=== PATIENT | female | born 1985 | race Caucasian/White ===

== ENCOUNTER 2017-09-29 15:23 | Observation (INO) ==
[2017-09-29] MEDS ORDERED: Ondansetron 4 MG/2 ML VIAL IVP ONE (16:12)
[2017-09-29] MEDS ORDERED: *HR* FentaNYL (PF) 100 MCG/2 ML VIAL IVP ONE ×2 (16:14→19:29)
--- NOTE | 2017-09-29 16:17 | Emergency Department Note ---
Disposition Clinical Impression: Cholecystitis Disposition: Admitted As Inpatient Condition: Fair Time of Disposition: 19:25 General Adult HPI - General Chief complaint: ED Abdominal Pain Stated complaint: Abdominal Pain/Seizure-like activity Time Seen by Provider: 09/29/17 15:55 Source: patient Mode of arrival: ambulatory Limitations: no limitations Nursing Notes Reviewed: Yes Vital Signs Reviewed: Yes - History of Present Illness HPI Narrative: Patient is a 32-year-old female with a past medical history of IV DU, hepatitis C, and asthma presenting to the emergency department for the complaint of epigastric and right upper quadrant abdominal pain. The patient states that this pain started initially 7 days ago and was intermittent however over the past 3 days has become constant and worsening. She states the pain as a cramping/stabbing pain that is a 10/10. She states the pain does not radiate into her back. This pain is associated with bilious vomiting as well as nonbloody diarrhea. She states she has never had pain like this before. She states that she has not used IV heroin in over 2 years. She states that she did use "ice" 3 days ago because the pain was so bad. She denies any fevers, chills, chest pain, shortness of breath, dysuria, vaginal discharge. She states she is currently on her menstrual period. Pain Scale: 10 - Related Data Home Medications Medication Instructions Recorded Confirmed No Known Home Drugs 09/27/17 09/29/17 Allergies Allergy/AdvReac Type Severity Reaction Status Date / Time naproxen AdvReac Seizure Verified 09/29/17 04:33 Penicillins [PCN] AdvReac Hives Verified 09/29/17 04:33 All systems ED: reviewed and negative except as stated. Review of Systems: As Per HPI Constitutional: Denies: fever, chills ENT ED: Denies: congestion Respiratory: Denies: cough, dyspnea, wheezes Gastrointestinal: Reports: abdominal pain, nausea, vomiting, diarrhea. Denies: hematemesis, melena, hematochezia Genitourinary: Denies: urgency, dysuria Musculoskeletal: Denies: back pain Integumentary: Denies: rash Past Medical History - Past Medical History Attestation: Yes The following information was validated with the patient. Medical history: Reports: asthma, seizures Psychiatric history: Reports: anxiety - Social History Smoking Status: Current every day smoker Smokeless Tobacco Status: No Alcohol use: Reports: occasionally Drug use: Reports: marijuana, methamphetamine, IV Drug Use Physical Exam CONSTITUTIONAL: Alert and oriented X3. Patient does appear to be in moderate distress secondary to her abdominal pain. She is tearful. HEAD: Normocephalic; atraumatic. Mucous membranes are dry. EYES: PERRL, no scleral icterus. NOSE: The nose is normal in appearance without rhinorrhea RESP: Normal chest excursion with respiration; breath sounds clear and equal bilaterally; no wheezes, rhonchi, or rales CARD: Regular rhythm, without murmurs, rub or gallop ABD: Patient has epigastric and right upper quadrant abdominal tenderness that is moderate with palpation. No peritoneal signs. SKIN: Normal for age and race; warm and dry; no apparent lesions - General General appearance: alert, anxious Course Course Narrative: Plan at this time is order basic labs to evaluate for an abdominal etiology of the patient's pain. She did have a recent ultrasound done of her gallbladder which mainly showed stones. We will do a CT scan of the abdomen and pelvis and treat the patient's pain and nausea at this time. - Reevaluation(s) Reevaluation #1: Due to the findings of the patient's CT scan and description sounds like possibly be a cholecystitis a right upper quadrant ultrasound which was positive for acute cholecystitis. The patient was started on IV antibiotics and admitted to the hospitalist with consult to Dr. Nelson. Dr. Nelson requested patient be started on 125ml/hr LR D5. Time: 20:36 Vital Signs Temperature 97.5 F L 09/29/17 15:25 Pulse Rate 56 09/29/17 15:25 Respiratory Rate 20 09/29/17 15:25 Blood Pressure 137/81 09/29/17 15:25 O2 Sat by Pulse Oximetry 99 09/29/17 15:25 Temperature 97.5 F L 09/29/17 15:25 Pulse Rate 59 09/29/17 17:58 Respiratory Rate 16 09/29/17 17:58 Blood Pressure 128/77 09/29/17 17:58 O2 Sat by Pulse Oximetry 99 09/29/17 17:58 Oxygen Delivery Oxygen Delivery Room Air Medical Decision Making - Medical Records Medical records reviewed: Yes I reviewed the patient's medical records. - Lab Data Lab results reviewed: Yes I reviewed the patient's lab results. Result diagrams: 09/29/17 16:13 09/29/17 17:48 Lab Results 09/29/17 09/29/17 09/29/17 Range/Units 16:13 17:48 19:33 WBC 14.0 H (4.3-11.1) K/mcL RBC 3.95 (3.82-4.97) M/mcL Hgb 12.0 D (11.5-15.4) g/dL Hct 35.7 (35.3-44.9) % MCV 90.4 (83.0-100.0) fL MCH 30.4 (28.0-33.3) pg MCHC 33.6 (31.6-35.5) g/dL RDW 13.2 (11.5-14.5) % Plt Count 259 (140-400) K/mcL MPV 9.8 (9.4-12.4) fL Immature Gran % 0.4 (0-4) % Seg Neutrophils % 69.0 % Lymphocytes % 23.4 % Monocytes % 6.2 % Eosinophils % 0.7 % Basophils % 0.3 % Neutrophils # 9.6 H (1.6-8.9) K/mcL Lymphocytes # 3.3 (0.6-4.6) K/mcL Monocytes # 0.9 (0.0-1.3) K/mcL Eosinophils # 0.1 (0.0-0.6) K/mcL Basophils # 0.0 (0.0-0.2) K/mcL Immature Plt Fraction 3.2 (1.1-6.1) % Sodium 136 (136-145) mEq/L Potassium 4.1 (3.5-5.1) mEq/L Chloride 106 (98-107) mEq/L Carbon Dioxide 23 (23-29) mEq/L BUN 10 (6-20) mg/dL Creatinine 0.57 L (0.60-1.20) mg/dL Est GFR ( Amer) > 60 (> 60) Est GFR (Non-Af Amer) > 60 (> 60) BUN/Creatinine Ratio 18 (6-26) Glucose 104 (70-105) mg/dL Calculated Osmolality 281 (280-300) Calcium 9.4 (8.6-10.3) mg/dL Total Bilirubin 0.4 (0.3-1.0) mg/dL Direct Bilirubin 0.1 (0.0-0.2) mg/dL Indirect Bilirubin 0.3 (0.0-1.2) mg/dL AST 27 (13-39) Units/L ALT 40 (7-52) Units/L Alkaline Phosphatase 59 (34-104) Units/L Serum Total Protein 6.9 (6.4-8.9) g/dL Albumin 4.2 (3.5-5.7) g/dL Globulin 2.7 (2.4-3.5) g/dL Albumin/Globulin Ratio 1.6 (1.1-2.2) Lipase 7 L (11-82) Units/L Urine Color Yellow (Yellow) Urine Clarity Clear (Clear) Urine pH 8.0 (5.0-8.0) pH Units Ur Specific [place] > 1.030 H (1.010-1.025) Urine Protein Trace (Neg-Trace) mg/dL Urine Glucose (UA) Normal (Normal) mg/dL Urine Ketones Negative (Negative) mg/dL Urine Blood Negative (Negative) Urine Nitrite Negative (Negative) Urine Bilirubin Negative (Negative) Urine Urobilinogen Normal (Normal) mg/dL Ur Leukocyte Esterase Trace H (Negative) Urine Microscopic RBC 3-5 H (0-3) per hpf Urine Microscopic WBC 50-100 H (0-3) per hpf Ur Squamous Epith Cells Many H (None-Few) per lpf Urine Bacteria Few (None-Few) per hpf Hyaline Casts Few (None-Few) per lpf Ur Culture Indicated? NO. (NO) Urine Test (Negative) 09/29/17 Range/Units 19:33 WBC (4.3-11.1) K/mcL RBC (3.82-4.97) M/mcL Hgb (11.5-15.4) g/dL Hct (35.3-44.9) % MCV (83.0-100.0) fL MCH (28.0-33.3) pg MCHC (31.6-35.5) g/dL RDW (11.5-14.5) % Plt Count (140-400) K/mcL MPV (9.4-12.4) fL Immature Gran % (0-4) % Seg Neutrophils % % Lymphocytes % % Monocytes % % Eosinophils % % Basophils % % Neutrophils # (1.6-8.9) K/mcL Lymphocytes # (0.6-4.6) K/mcL Monocytes # (0.0-1.3) K/mcL Eosinophils # (0.0-0.6) K/mcL Basophils # (0.0-0.2) K/mcL Immature Plt Fraction (1.1-6.1) % Sodium (136-145) mEq/L Potassium (3.5-5.1) mEq/L Chloride (98-107) mEq/L Carbon Dioxide (23-29) mEq/L BUN (6-20) mg/dL Creatinine (0.60-1.20) mg/dL Est GFR ( Amer) (> 60) Est GFR (Non-Af Amer) (> 60) BUN/Creatinine Ratio (6-26) Glucose (70-105) mg/dL Calculated Osmolality (280-300) Calcium (8.6-10.3) mg/dL Total Bilirubin (0.3-1.0) mg/dL Direct Bilirubin (0.0-0.2) mg/dL Indirect Bilirubin (0.0-1.2) mg/dL AST (13-39) Units/L ALT (7-52) Units/L Alkaline Phosphatase (34-104) Units/L Serum Total Protein (6.4-8.9) g/dL Albumin (3.5-5.7) g/dL Globulin (2.4-3.5) g/dL Albumin/Globulin Ratio (1.1-2.2) Lipase (11-82) Units/L Urine Color (Yellow) Urine Clarity (Clear) Urine pH (5.0-8.0) pH Units Ur Specific [place] (1.010-1.025) Urine Protein (Neg-Trace) mg/dL Urine Glucose (UA) (Normal) mg/dL Urine Ketones (Negative) mg/dL Urine Blood (Negative) Urine Nitrite (Negative) Urine Bilirubin (Negative) Urine Urobilinogen (Normal) mg/dL Ur Leukocyte Esterase (Negative) Urine Microscopic RBC (0-3) per hpf Urine Microscopic WBC (0-3) per hpf Ur Squamous Epith Cells (None-Few) per lpf Urine Bacteria (None-Few) per hpf Hyaline Casts (None-Few) per lpf Ur Culture Indicated? (NO) Urine Test Negative (Negative) - Radiology Data Radiology results reviewed: Yes I reviewed the patient's radiology results. Abdomen/Pelvis CT 09/29/17 16:20 IMPRESSION: Distended gallbladder which shows wall thickening. Gallbladder wall thickening is nonspecific and can be seen with acute and/or chronic inflammation, fluid overload/ edematous states, or right upper quadrant inflammatory or infectious processes to include hepatitis. Periportal edema, also nonspecific and can be also be seen with aggressive hydration, congestive heart failure, or inflammatory processes to include cholangitis, and hepatitis. D/ / Kelly Rodriguez Cha, MD / Kelly Rodriguez Cha, MD Interpreting Provider: Kelly Rodriguez Cha, MD Gallbladder Ultrasound 09/29/17 17:31 IMPRESSION: Findings compatible with acute cholecystitis. There is gallbladder distention, wall thickening, and cholelithiasis with positive sonographic Joseph's sign. Periportal edema, a nonspecific finding. This can be seen with aggressive hydration and hepatitis. D/ / Edison Bridges MD / Edison Bridges MD Interpreting Provider: Edison Bridgse MD Attestation Statement - Attestation Attestation: I examined this patient and my medical decision-making was reviewed with the Resident Physician, Dr. Carrizales. I agree with the documented findings, disposition and treatment plan as described except to the extent set forth below. She is a 32-year-old white female with a history of IV drug abuse remotely and hepatitis C who presents the emergency room with a seven-day history of gradually worsening right upper quadrant abdominal pain associated with nausea and vomiting. Patient states the pain is intensified over the past 72 hours and reports being evaluated at an outlying facility and having an ultrasound in which she was told she had stones. Patient has continued with symptoms despite prior evaluation and feels that they are worsening in severity. I agree with patient's physical exam findings as documented. Signs are stable. Patient appears uncomfortable and requesting pain medicine on arrival. Patient was provided pain in nausea medication IV labs were drawn and sent and due to prior ultrasound reported by history as being normal we started with a CAT scan to further evaluate her abdominal pain. Patient's labs overall appear unremarkable. Patient's CT was suggestive of possible acute cholecystitis. We went ahead and repeated the right upper quadrant ultrasound and it confirmed the presence of acute cholecystitis. Patient has remained hemodynamically stable with normal mental status throughout her ED course. Patient was started on IV antibiotics and Dr. Nelson from surgery was contacted who agreed to consult and requested that patient be admitted to the hospitalist service. Case was also discussed with hospitalist.
[2017-09-29 18:01] LABS: Basophils % 0.3 %; Eosinophils # 0.1 K/mcL (0.0-0.6); Eosinophils % 0.7 %; Hematocrit 35.7 % (35.3-44.9); Immature Granulocytes % 0.4 % (0-4); Immature Platelets 3.2 % (1.1-6.1); Lymphocytes # 3.3 K/mcL (0.6-4.6); Lymphocytes % 23.4 %; Mean Corpuscular HGB Conc 33.6 g/dL (31.6-35.5); Mean Corpuscular Hemoglobin 30.4 pg (28.0-33.3); Mean Corpuscular Volume 90.4 fL (83.0-100.0); Mean Platelet Volume 9.8 fL (9.4-12.4); Monocytes # 0.9 K/mcL (0.0-1.3); Monocytes % 6.2 %; Neutrophils # 9.6 K/mcL (1.6-8.9); Platelet Count 259 K/mcL (140-400); Red Blood Count 3.95 M/mcL (3.82-4.97); Red Cell Distribution Width 13.2 % (11.5-14.5)
[2017-09-29 18:17] LABS: Alanine Aminotransferase 40 Units/L (7-52); Albumin 4.2 g/dL (3.5-5.7); Albumin/Globulin Ratio 1.6 (1.1-2.2); Alkaline Phosphatase 59 Units/L (34-104); Aspartate Amino Transferase 27 Units/L (13-39); BUN/Creatinine Ratio 18 (6-26); Bilirubin,Direct 0.1 mg/dL (0.0-0.2); Bilirubin,Indirect 0.3 mg/dL (0.0-1.2); Bilirubin,Total 0.4 mg/dL (0.3-1.0); Blood Urea Nitrogen 10 mg/dL (6-20); Calcium 9.4 mg/dL (8.6-10.3); Carbon Dioxide 23 mEq/L (23-29); Chloride 106 mEq/L (98-107); Globulin 2.7 g/dL (2.4-3.5); Glucose 104 mg/dL (70-105); Lipase 7 Units/L (11-82); Osmolality,Calculated 281 (280-300); Potassium 4.1 mEq/L (3.5-5.1); Sodium 136 mEq/L (136-145); Total Protein 6.9 g/dL (6.4-8.9); eGFR For African Americans > 60 (> 60); eGFR For Non-African Americans > 60 (> 60)
[2017-09-29] MEDS ORDERED: MetroNIDAZOLE 500 MG/100 ML 500 MG/100 ML BAG IVPB ONE (19:20)
[2017-09-29] MEDS ORDERED: D5% in Lactated Ringers 1,000 ML IVC SCH (19:30)
[2017-09-29 19:49] LABS: Bilirubin,Urine Negative (Negative); Blood,Urine Negative (Negative); Clarity,Urine Clear (Clear); Color,Urine Yellow (Yellow); Glucose,Urine (UA) Normal (Normal); Ketones,Urine Negative (Negative); Leukocyte Esterase,Urine Trace (Negative); Nitrite,Urine Negative (Negative); Protein,Urine Trace mg/dL (Neg-Trace); Specific Gravity,Urine > 1.030 (1.010-1.025); Urobilinogen,Urine Normal (Normal)
[2017-09-29 19:52] LABS: Bacteria,Urine Few per hpf (None-Few); Hyaline Casts,Urine Few per lpf (None-Few); Squamous Epithelial Cell,Urine Many per lpf (None-Few); WBC,Urine 50-100 per hpf (0-3)
[2017-09-29] MEDS ORDERED: Acetaminophen 325 MG TABLET PO PRN (20:34)
[2017-09-29] MEDS ORDERED: Naloxone 0.4 MG/ML INJ IVP PRN (20:34)
[2017-09-29] MEDS ORDERED: *HR* Promethazine 25 MG/ML VIAL IVP PRN (20:34)
[2017-09-29] MEDS ORDERED: Ondansetron 4 MG/2 ML VIAL IVP PRN (20:34)
--- NOTE | 2017-09-29 21:37 | Internal Med History&Physical ---
Date of Encounter: 09/29/17 Time of Encounter: 20:30 Internal Medicine - H&P: HPI Chief complaint: Abdominal pain Admitted From: Emergency Dept Plans for Post Hospital Care: Home History of present illness: Ms. Marie is a 32 year old female with known PMH of IVDA, hepatitis C, and asthma pt presented to ER with one week h/o RUQ abd pain. She does c/o nausea and denied any vomiting. Her abdominal pain is 10/10 in severity, sharp pain, non radiating and associated with nausea. She had further work up done in the ER , her U/S abd and CT of Abd showed acute cholecystitis. Pt did mention she does take ICE drug 3 days ago and smoke tobacco and Marijuana on regular basis. Past Med Surg Social Fam HX - Past Medical History Medical history: asthma, seizures Psychiatric history: anxiety - Social History Smoking Status: Current every day smoker Smokeless Tobacco Status: No Alcohol use: occasionally Drug use: marijuana, methamphetamine, IV Drug Use - Additional Family History Additional family history: Family hsitory reviewed and non contribuitory to current problem. Internal Medicine - H&P: Meds No Known Home Drugs 09/27/17 [History] 3 Allergy/AdvReac Type Severity Reaction Status Date / Time naproxen AdvReac Seizure Verified 09/29/17 04:33 Penicillins [PCN] AdvReac Hives Verified 09/29/17 04:33 All Systems PM: A 10-system review of systems was performed and is negative for pertinent findings except as documented above in the HPI. Review of systems: All the systems are reviewed everything is benign except the systems and symptoms I mentioned in the history of present illness - Constitutional Vitals: Temp Pulse Resp BP Pulse Ox 97.5 F L 59 16 128/77 99 09/29/17 15:25 09/29/17 17:58 09/29/17 17:58 09/29/17 17:58 09/29/17 17:58 General appearance: Present: A&O X 3, answers questions appropriately - Head Head exam: Present: atraumatic, normal inspection - Respiratory Respiratory exam: Present: decreased breath sounds. Absent: rales, respiratory distress, rhonchi, wheezes - Cardiovascular Cardiovascular exam: Present: RRR, +S1, +S2. Absent: tachycardia - GI/Abdominal GI/Abdominal exam: Present: normal bowel sounds, soft, tenderness (RUQ). Absent : rebound, rigid - Extremities Exam Extremities exam: Absent: calf tenderness, pedal edema, tenderness - Back Exam Back exam: Absent: CVA tenderness (L), CVA tenderness (R) - Neurological Exam Neurological exam: Present: alert, oriented X3 - Psychiatric Psychiatric exam: Present: normal affect, normal mood - Skin Skin exam: Absent: rash Internal Med - H&P Results - Labs CBC & Chem 7: 09/29/17 16:13 09/29/17 17:48 - Assessment and plan (1) Cholecystitis Current Visit: Yes Status: Acute Assessment and plan: Place the pt into Med Surg for observation Reviewed pt's CT of Abd and U/S of Abd - showed distended GB - consistent with acute cholecystitis Surgery consulted NPO IV hydration Possible surgery in AM Empirical abx with Cipro and Flagyl PO and IV analgesics PRN (2) Substance abuse Current Visit: Yes Status: Acute Assessment and plan: counseled to quit doing drugs will check UDS cont close monitoring for any withdraw symptoms will give Ativan PRN for withdraw symptoms (3) UTI (urinary tract infection) Current Visit: Yes Status: Acute Assessment and plan: reviewed UA- sightly abnormal on Abx Cipro Qualifiers: Hematuria presence: without hematuria Qualified Code(s): N39.0 - Urinary tract infection, site not specified (4) Tobacco dependence Current Visit: Yes Status: Acute Assessment and plan: Counseled to quit smoking placed on nicotine patch - Time Spent With Patient Total time spent is greater than 50% in coordination of care (as documented) at patient's floor/unit and/or counseling patient:
[2017-09-29] MEDS: 0.9 % Sodium Chloride 1,000 ML IVC SCH (22:35)
[2017-09-29] MEDS: *HR* FentaNYL (PF) 100 MCG/2 ML VIAL IVP PRN (22:49)
[2017-09-30] MEDS: *HR* HYDROcodone/Acet 5/325 mg TABLET PO PRN ×4 (01:11→22:59)
[2017-09-30] MEDS: *HR* FentaNYL (PF) 100 MCG/2 ML VIAL IVP PRN ×5 (02:04→22:59)
[2017-09-30] MEDS: MetroNIDAZOLE 500 MG/100 ML 500 MG/100 ML BAG IVPB SCH ×3 (05:08→15:48)
[2017-09-30 05:42] LABS: Basophils % 0.3 %; Eosinophils # 0.2 K/mcL (0.0-0.6); Eosinophils % 1.5 %; Hematocrit 37.6 % (35.3-44.9); Hemoglobin 12.7 g/dL (11.5-15.4); Immature Granulocytes % 0.4 % (0-4); Lymphocytes # 4.9 K/mcL (0.6-4.6); Lymphocytes % 34.5 %; Mean Corpuscular HGB Conc 33.8 g/dL (31.6-35.5); Mean Corpuscular Volume 91.7 fL (83.0-100.0); Mean Platelet Volume 9.9 fL (9.4-12.4); Monocytes # 1.1 K/mcL (0.0-1.3); Monocytes % 7.8 %; Neutrophils # 7.9 K/mcL (1.6-8.9); Platelet Count 280 K/mcL (140-400); Segmented Neutrophils % 55.5 %
[2017-09-30 05:56] LABS: Alanine Aminotransferase 36 Units/L (7-52); Albumin 3.9 g/dL (3.5-5.7); Albumin/Globulin Ratio 1.4 (1.1-2.2); Alkaline Phosphatase 56 Units/L (34-104); Aspartate Amino Transferase 24 Units/L (13-39); BUN/Creatinine Ratio 14 (6-26); Bilirubin,Total 0.5 mg/dL (0.3-1.0); Blood Urea Nitrogen 9 mg/dL (6-20); Calcium 9.3 mg/dL (8.6-10.3); Carbon Dioxide 24 mEq/L (23-29); Chloride 106 mEq/L (98-107); Globulin 2.8 g/dL (2.4-3.5); Glucose 95 mg/dL (70-105); Osmolality,Calculated 280 (280-300); Potassium 3.9 mEq/L (3.5-5.1); Sodium 136 mEq/L (136-145); Total Protein 6.7 g/dL (6.4-8.9); eGFR For African Americans > 60 (> 60); eGFR For Non-African Americans > 60 (> 60)
[2017-09-30] MEDS: Nicotine 21 MG PATCH.TD24 TD SCH (08:24)
--- NOTE | 2017-09-30 10:04 | General Surgery Consult Note ---
<Dang Toscano - Last Filed: 09/30/17 14:48> Date of Encounter: 09/30/17 Time of Encounter: 07:30 Assessment and Plan (1) Cholecystitis Current Visit: Yes Status: Acute Patient is afebrile. Labs showed leukocytosis with a white blood count of 14.3 , normal LFTs, normal bilirubin, and negative UA. CT of the abdomen shows Distended gallbladder which shows wall thickening. Gallbladder wall thickening is nonspecific and can be seen with acute and/or chronic inflammation, fluid overload/ edematous states, or right upper quadrant inflammatory or infectious processes to include hepatitis. Gallbladder ultrasound shows findings compatible with acute cholecystitis. There is gallbladder distention, wall thickening, and cholelithiasis with positive sonographic Joseph's sign. No significant pericholecystic fluid. Plan: continue IV fluids continue IV antibiotics pain control and supportive care NPO diet Surgical intervention tomorrow. Plan for laprascopic cholecystectomy tomorrow. (2) History of hepatitis C Current Visit: Yes Status: Acute History of hepatitis C most likely secondary to history of IV drug use. Management per primary team. History of Present Illness Consult date: 09/30/17 Reason for consult: other (Acute cholecystitis) History of present illness: Ms. Marie is a 32 year old female with a past medical history of IV drug use, hepatitis C, and asthma who presented to the ER complaining of right upper quadrant abdominal pain for the past week. The patient admits associated nausea but denies any vomiting. She describes the right upper quadrant abdominal pain as a constant, sharp, and radiates to her back. She admits he pain has worsened over the last 3 days. She admits the pain was unbearable and had taken "ICE" for the pain. The patient clarified that ice was meth. She stated that she has not use heroin in the past 2 years. Evaluation the emergency department shows a leukocytosis with a white blood count of 14, normal LFTs, normal bilirubin, and negative UA. CT of the abdomen shows Distended gallbladder which shows wall thickening. Gallbladder wall thickening is nonspecific and can be seen with acute and/or chronic inflammation, fluid overload/ edematous states, or right upper quadrant inflammatory or infectious processes to include hepatitis. Gallbladder ultrasound shows findings compatible with acute cholecystitis. There is gallbladder distention, wall thickening, and cholelithiasis with positive sonographic Joseph's sign. No significant pericholecystic fluid. Surgery was consulted for possible acute cholecystitis. Patient is afebrile and appears in no acute distress at this time. Patient admits nausea. Patient stated last bowel movement was yesterday and it was normal. Patient denies any surgical history. The patient denies any fever, headaches, vision changes, near syncope, chest pain, shortness of breath, difficulty breathing, diarrhea, blood in stools, urinary symptoms, and any weaknesses. Past Med Surg Social Fam HX - Past Medical History Medical history: asthma, seizures Psychiatric history: anxiety - Social History Smoking Status: Current every day smoker Smokeless Tobacco Status: No Alcohol use: occasionally Drug use: marijuana, methamphetamine, IV Drug Use Medications and Allergies No Known Home Drugs 09/27/17 [History] 3 Allergy/AdvReac Type Severity Reaction Status Date / Time Cyclobenzaprine AdvReac Seizure Verified 10/01/17 07:02 [From Flexeril] naproxen AdvReac Seizure Verified 09/29/17 04:33 Penicillins [PCN] AdvReac Hives Verified 09/29/17 04:33 Review of Systems All systems PM: The remainder of the systems were reviewed and are negative - Constitutional as per HPI General Surgery Exam Initial Vital Signs Temp Pulse Resp BP Pulse Ox 97.5 F L 56 20 137/81 99 09/29/17 15:25 09/29/17 15:25 09/29/17 15:25 09/29/17 15:25 09/29/17 15:25 - General physical appearance well developed, well nourished, no distress, moderate pain. negative: obese, jaundice - Eyes PERRL, normal ocular movement - ENT normal mucosa - Neck trachea midline - Respiratory normal expansion, normal respiratory effort - Cardiovascular Cardiovascular exam: Present: RRR, no murmurs/rubs/gallops - Abdomen Abdomen general surgery: Present: bowel sounds present, soft, tender ( Tenderness to palpation in the right upper quadrant and epigastric). Absent: distended, guarding, rebound, rigid Abdominal Tenderness: Present: epigastic, RUQ - Integumentary Integumentary general surgery: Present: warm and dry, no abnormal pigmentation - Neurologic Present: CN 2-12 grossly intact - Psychiatric Psychiatric general surgery: Present: A&Ox3, appropriate, speech is normal Exam Initial Vital Signs Temp Pulse Resp BP Pulse Ox 97.5 F L 56 20 137/81 99 09/29/17 15:25 09/29/17 15:25 09/29/17 15:25 09/29/17 15:25 09/29/17 15:25 Results - Labs 09/30/17 05:11 09/30/17 05:11 Abnormal lab results WBC 14.3 K/mcL (4.3-11.1) H 09/30/17 05:11 Lymphocytes # 4.9 K/mcL (0.6-4.6) H 09/30/17 05:11 Lipase 7 Units/L (11-82) L 09/29/17 17:48 Ur Specific [place] > 1.030 (1.010-1.025) H 09/29/17 19:33 Ur Leukocyte Esterase Trace (Negative) H 09/29/17 19:33 Urine Microscopic RBC 3-5 per hpf (0-3) H 09/29/17 19:33 Urine Microscopic WBC 50-100 per hpf (0-3) H 09/29/17 19:33 Ur Squamous Epith Cells Many per lpf (None-Few) H 09/29/17 19:33 Diabetes panel 09/30/17 Range/Units 05:11 Sodium 136 (136-145) mEq/L Potassium 3.9 (3.5-5.1) mEq/L Chloride 106 (98-107) mEq/L Carbon Dioxide 24 (23-29) mEq/L BUN 9 (6-20) mg/dL Creatinine 0.63 (0.60-1.20) mg/dL Glucose 95 (70-105) mg/dL Calcium 9.3 (8.6-10.3) mg/dL AST 24 (13-39) Units/L ALT 36 (7-52) Units/L Alkaline Phosphatase 56 (34-104) Units/L Albumin 3.9 (3.5-5.7) g/dL Calcium panel 09/30/17 Range/Units 05:11 Calcium 9.3 (8.6-10.3) mg/dL Albumin 3.9 (3.5-5.7) g/dL Pituitary panel 09/30/17 Range/Units 05:11 Sodium 136 (136-145) mEq/L Potassium 3.9 (3.5-5.1) mEq/L Chloride 106 (98-107) mEq/L Carbon Dioxide 24 (23-29) mEq/L BUN 9 (6-20) mg/dL Creatinine 0.63 (0.60-1.20) mg/dL Glucose 95 (70-105) mg/dL Calcium 9.3 (8.6-10.3) mg/dL Adrenal panel 09/30/17 Range/Units 05:11 Sodium 136 (136-145) mEq/L Potassium 3.9 (3.5-5.1) mEq/L Chloride 106 (98-107) mEq/L Carbon Dioxide 24 (23-29) mEq/L BUN 9 (6-20) mg/dL Creatinine 0.63 (0.60-1.20) mg/dL Glucose 95 (70-105) mg/dL Calcium 9.3 (8.6-10.3) mg/dL Total Bilirubin 0.5 (0.3-1.0) mg/dL AST 24 (13-39) Units/L ALT 36 (7-52) Units/L Alkaline Phosphatase 56 (34-104) Units/L Albumin 3.9 (3.5-5.7) g/dL All other labs normal. Consult Discharge Plan - Plan Referrals: NONE,PCP [Primary Care Provider] - <Kaleb Gusman E - Last Filed: 10/01/17 11:51> Date of Encounter: 10/01/17 Review of Systems All systems PM: The remainder of the systems were reviewed and are negative General Surgery Exam Initial Vital Signs Temp Pulse Resp BP Pulse Ox 97.5 F L 56 20 137/81 99 09/29/17 15:25 09/29/17 15:25 09/29/17 15:25 09/29/17 15:25 09/29/17 15:25 Exam Initial Vital Signs Temp Pulse Resp BP Pulse Ox 97.5 F L 56 20 137/81 99 09/29/17 15:25 09/29/17 15:25 09/29/17 15:25 09/29/17 15:25 09/29/17 15:25 Results - Labs 10/01/17 06:04 10/01/17 06:04 Abnormal lab results WBC 18.9 K/mcL (4.3-11.1) H 10/01/17 06:04 Neutrophils # 13.7 K/mcL (1.6-8.9) H 10/01/17 06:04 Monocytes # 2.2 K/mcL (0.0-1.3) H 10/01/17 06:04 Sodium 134 mEq/L (136-145) L 10/01/17 06:04 Glucose 107 mg/dL (70-105) H 10/01/17 06:04 POC Glucose 125 mg/dL (70-99) H 10/01/17 11:21 Calculated Osmolality 276 (280-300) L 10/01/17 06:04 Lipase 7 Units/L (11-82) L 09/29/17 17:48 Ur Specific [place] > 1.030 (1.010-1.025) H 09/29/17 19:33 Ur Leukocyte Esterase Trace (Negative) H 09/29/17 19:33 Urine Microscopic RBC 3-5 per hpf (0-3) H 09/29/17 19:33 Urine Microscopic WBC 50-100 per hpf (0-3) H 09/29/17 19:33 Ur Squamous Epith Cells Many per lpf (None-Few) H 09/29/17 19:33 Urine Opiates Screen Positive ng/mL (Cpuwcq=[id number]) H 10/01/17 05:25 Ur Amphetamines Screen Positive ng/mL ([id number]) H 10/01/17 05:25 Diabetes panel 10/01/17 Range/Units 06:04 Sodium 134 L (136-145) mEq/L Potassium 3.8 (3.5-5.1) mEq/L Chloride 104 (98-107) mEq/L Carbon Dioxide 23 (23-29) mEq/L BUN 7 (6-20) mg/dL Creatinine 0.61 (0.60-1.20) mg/dL Glucose 107 H (70-105) mg/dL Calcium 8.9 (8.6-10.3) mg/dL Calcium panel 10/01/17 Range/Units 06:04 Calcium 8.9 (8.6-10.3) mg/dL Pituitary panel 10/01/17 Range/Units 06:04 Sodium 134 L (136-145) mEq/L Potassium 3.8 (3.5-5.1) mEq/L Chloride 104 (98-107) mEq/L Carbon Dioxide 23 (23-29) mEq/L BUN 7 (6-20) mg/dL Creatinine 0.61 (0.60-1.20) mg/dL Glucose 107 H (70-105) mg/dL Calcium 8.9 (8.6-10.3) mg/dL Adrenal panel 10/01/17 Range/Units 06:04 Sodium 134 L (136-145) mEq/L Potassium 3.8 (3.5-5.1) mEq/L Chloride 104 (98-107) mEq/L Carbon Dioxide 23 (23-29) mEq/L BUN 7 (6-20) mg/dL Creatinine 0.61 (0.60-1.20) mg/dL Glucose 107 H (70-105) mg/dL Calcium 8.9 (8.6-10.3) mg/dL All other labs normal. - Attending Attestation I examined this patient and my medical decision-making was reviewed with the Resident Physician. I agree with the documented findings, disposition and treatment plan as described except to the extent set forth below.
--- NOTE | 2017-09-30 10:35 | Internal Med Progress Note ---
Date of Encounter: 09/30/17 Time of Encounter: 10:33 - Assessment and plan (1) Cholecystitis Current Visit: Yes Status: Acute Assessment and plan: - CT and US findings suggestive of acute cholecystitis. - Pt accidentally ate breakfast today, likely surgery will be postponed. - continue IV abx and continue NPO. - Surgery following, appreciate help. (2) UTI (urinary tract infection) Current Visit: Yes Status: Acute Assessment and plan: - Already on IV abx. Qualifiers: Hematuria presence: without hematuria Qualified Code(s): N39.0 - Urinary tract infection, site not specified (3) Substance abuse Current Visit: No Status: Chronic Assessment and plan: - She admitted took meth days ago. - she stated will f/u with [facility]. (4) Tobacco dependence Current Visit: No Status: Chronic Assessment and plan: - Nicotine patch. - Time Spent With Patient Total time spent is greater than 50% in coordination of care (as documented) at patient's floor/unit and/or counseling patient: 25 - 35 minutes - Subjective Interval history: still having abdominal pain at the right upper quadrant. denies fever, chills, or sweats. - Constitutional Vitals: Temp Pulse Resp BP Pulse Ox 98.2 F 77 15 106/70 98 09/30/17 07:18 09/30/17 07:18 09/30/17 07:18 09/30/17 07:18 09/30/17 07:18 General appearance: Present: A&O X 3, answers questions appropriately Exam: PHYSICAL EXAMINATION: GENERAL APPEARANCE: The patient is alert, oriented and in no acute distress. HEENT: Head is normocephalic. The sinuses are nontender. Pupils are equal and reactive. The nares are patent. Oropharynx clear without lesions. NECK: Supple without lymphadenopathy. HEART: Regular rate and rhythm. LUNGS: No crackles or wheezes are heard. ABDOMEN: positive Joseph's sign. EXTREMITIES: Without cyanosis, clubbing or edema. NEUROLOGICAL: Gross nonfocal. SKIN: Warm and dry without any rash. Internal Medicine: Result - Labs CBC & Chem 7: 09/30/17 05:11 09/30/17 05:11 Labs: Short CBC 09/30/17 Range/Units 05:11 WBC 14.3 H (4.3-11.1) K/mcL Hgb 12.7 (11.5-15.4) g/dL Hct 37.6 (35.3-44.9) % Plt Count 280 (140-400) K/mcL Neutrophils # 7.9 (1.6-8.9) K/mcL BMP 09/30/17 05:11 Sodium 136 Potassium 3.9 Chloride 106 Carbon Dioxide 24 BUN 9 Creatinine 0.63 Glucose 95 Calcium 9.3 Liver Function 09/30/17 Range/Units 05:11 Total Bilirubin 0.5 (0.3-1.0) mg/dL AST 24 (13-39) Units/L ALT 36 (7-52) Units/L Alkaline Phosphatase 56 (34-104) Units/L Albumin 3.9 (3.5-5.7) g/dL Consult Discharge Plan - Plan Referrals: NONE,PCP [Primary Care Provider] -
[2017-09-30] MEDS: *HR* LORazepam 1 MG TABLET PO PRN ×2 (14:01→20:01)
[2017-09-30] MEDS: 0.9 % Sodium Chloride 1,000 ML IVC SCH (20:19)
[2017-10-01] MEDS: MetroNIDAZOLE 500 MG/100 ML 500 MG/100 ML BAG IVPB SCH ×2 (01:59→10:52)
[2017-10-01] MEDS: *HR* FentaNYL (PF) 100 MCG/2 ML VIAL IVP PRN ×2 (01:59→05:17)
[2017-10-01 06:04] LABS: Amphetamine Screen,Urine Positive ng/mL (Cutoff=1000); Barbiturate Screen,Urine Negative ng/mL (Cutoff=200); Benzodiazepines Screen,Urine Negative ng/mL (Cutoff=200); Cannabinoid Screen,Urine Negative ng/mL (Cutoff = 50); Cocaine Screen,Urine Negative ng/mL (Cutoff= 300); Opiate Screen,Urine Positive ng/mL (Cutoff=300); Phencyclidine Screen,Urine Negative ng/mL (Cutoff=25)
[2017-10-01 06:16] LABS: Basophils # 0.1 K/mcL (0.0-0.2); Basophils % 0.3 %; Eosinophils # 0.1 K/mcL (0.0-0.6); Eosinophils % 0.3 %; Hematocrit 36.3 % (35.3-44.9); Hemoglobin 12.6 g/dL (11.5-15.4); Immature Granulocytes % 0.5 % (0-4); Lymphocytes # 2.8 K/mcL (0.6-4.6); Lymphocytes % 14.9 %; Mean Corpuscular HGB Conc 34.7 g/dL (31.6-35.5); Mean Corpuscular Hemoglobin 31.3 pg (28.0-33.3); Mean Corpuscular Volume 90.1 fL (83.0-100.0); Mean Platelet Volume 9.6 fL (9.4-12.4); Monocytes # 2.2 K/mcL (0.0-1.3); Monocytes % 11.8 %; Neutrophils # 13.7 K/mcL (1.6-8.9); Platelet Count 245 K/mcL (140-400); Red Blood Count 4.03 M/mcL (3.82-4.97); Red Cell Distribution Width 12.6 % (11.5-14.5); Segmented Neutrophils % 72.2 %
[2017-10-01 06:28] LABS: BUN/Creatinine Ratio 11 (6-26); Blood Urea Nitrogen 7 mg/dL (6-20); Calcium 8.9 mg/dL (8.6-10.3); Carbon Dioxide 23 mEq/L (23-29); Chloride 104 mEq/L (98-107); Glucose 107 mg/dL (70-105); Osmolality,Calculated 276 (280-300); Potassium 3.8 mEq/L (3.5-5.1); Sodium 134 mEq/L (136-145); eGFR For African Americans > 60 (> 60); eGFR For Non-African Americans > 60 (> 60)
--- NOTE | 2017-10-01 07:22 | Anesthesia Evaluation PreOp ---
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 NOT MEDICATED. Last Sz 3 days ago - pt believes associated with interval absence of Drug Use) Other Medical History: Hepatic (Hep C +. No current treatment) Anesthesia History: Past Anesthesia (No prior GA), MH (NO FamHx of MH) : No Test: Negative Alcohol Use: occasionally Drug use: marijuana, methamphetamine, IV Drug Use Medications and Allergies No Known Home Drugs 09/27/17 [History] 3 Allergy/AdvReac Type Severity Reaction Status Date / Time Cyclobenzaprine AdvReac Seizure Verified 10/01/17 07:02 [From Flexeril] naproxen AdvReac Seizure Verified 09/29/17 04:33 Penicillins [PCN] AdvReac Hives Verified 09/29/17 04:33 - Meds/Allergy Pre-op Review Medications Reviewed: Yes Allergies Reviewed: Yes Beta Blockers on Current Med List: No Anesthesia Results - Labs 10/01/17 06:04 10/01/17 06:04 Laboratory Results WBC 18.9 K/mcL (4.3-11.1) H 10/01/17 06:04 RBC 4.03 M/mcL (3.82-4.97) 10/01/17 06:04 Hgb 12.6 g/dL (11.5-15.4) 10/01/17 06:04 Hct 36.3 % (35.3-44.9) 10/01/17 06:04 MCV 90.1 fL (83.0-100.0) 10/01/17 06:04 MCH 31.3 pg (28.0-33.3) 10/01/17 06:04 MCHC 34.7 g/dL (31.6-35.5) 10/01/17 06:04 RDW 12.6 % (11.5-14.5) 10/01/17 06:04 Plt Count 245 K/mcL (140-400) 10/01/17 06:04 MPV 9.6 fL (9.4-12.4) 10/01/17 06:04 Immature Gran % 0.5 % (0-4) 10/01/17 06:04 Seg Neutrophils % 72.2 % 10/01/17 06:04 Lymphocytes % 14.9 % 10/01/17 06:04 Monocytes % 11.8 % 10/01/17 06:04 Eosinophils % 0.3 % 10/01/17 06:04 Basophils % 0.3 % 10/01/17 06:04 Neutrophils # 13.7 K/mcL (1.6-8.9) H 10/01/17 06:04 Lymphocytes # 2.8 K/mcL (0.6-4.6) 10/01/17 06:04 Monocytes # 2.2 K/mcL (0.0-1.3) H 10/01/17 06:04 Eosinophils # 0.1 K/mcL (0.0-0.6) 10/01/17 06:04 Basophils # 0.1 K/mcL (0.0-0.2) 10/01/17 06:04 Immature Plt Fraction 3.2 % (1.1-6.1) 09/29/17 16:13 Sodium 134 mEq/L (136-145) L 10/01/17 06:04 Potassium 3.8 mEq/L (3.5-5.1) 10/01/17 06:04 Chloride 104 mEq/L (98-107) 10/01/17 06:04 Carbon Dioxide 23 mEq/L (23-29) 10/01/17 06:04 BUN 7 mg/dL (6-20) 10/01/17 06:04 Creatinine 0.61 mg/dL (0.60-1.20) 10/01/17 06:04 Est GFR ( Amer) > 60 (> 60) 10/01/17 06:04 Est GFR (Non-Af Amer) > 60 (> 60) 10/01/17 06:04 BUN/Creatinine Ratio 11 (6-26) 10/01/17 06:04 Glucose 107 mg/dL (70-105) H 10/01/17 06:04 POC Glucose 102 mg/dL (70-99) H 10/01/17 05:32 Calculated Osmolality 276 (280-300) L 10/01/17 06:04 Calcium 8.9 mg/dL (8.6-10.3) 10/01/17 06:04 Total Bilirubin 0.5 mg/dL (0.3-1.0) 09/30/17 05:11 Direct Bilirubin 0.1 mg/dL (0.0-0.2) 09/29/17 17:48 Indirect Bilirubin 0.3 mg/dL (0.0-1.2) 09/29/17 17:48 AST 24 Units/L (13-39) 09/30/17 05:11 ALT 36 Units/L (7-52) 09/30/17 05:11 Alkaline Phosphatase 56 Units/L (34-104) 09/30/17 05:11 Serum Total Protein 6.7 g/dL (6.4-8.9) 09/30/17 05:11 Albumin 3.9 g/dL (3.5-5.7) 09/30/17 05:11 Globulin 2.8 g/dL (2.4-3.5) 09/30/17 05:11 Albumin/Globulin Ratio 1.4 (1.1-2.2) 09/30/17 05:11 Lipase 7 Units/L (11-82) L 09/29/17 17:48 Urine Color Yellow (Yellow) 09/29/17 19:33 Urine Clarity Clear (Clear) 09/29/17 19:33 Urine pH 8.0 pH Units (5.0-8.0) 09/29/17 19:33 Ur Specific Johnson > 1.030 (1.010-1.025) H 09/29/17 19:33 Urine Protein Trace mg/dL (Neg-Trace) 09/29/17 19:33 Urine Glucose (UA) Normal mg/dL (Normal) 09/29/17 19:33 Urine Ketones Negative mg/dL (Negative) 09/29/17 19:33 Urine Blood Negative (Negative) 09/29/17 19:33 Urine Nitrite Negative (Negative) 09/29/17 19:33 Urine Bilirubin Negative (Negative) 09/29/17 19:33 Urine Urobilinogen Normal mg/dL (Normal) 09/29/17 19:33 Ur Leukocyte Esterase Trace (Negative) H 09/29/17 19:33 Urine Microscopic RBC 3-5 per hpf (0-3) H 09/29/17 19:33 Urine Microscopic WBC 50-100 per hpf (0-3) H 09/29/17 19:33 Ur Squamous Epith Cells Many per lpf (None-Few) H 09/29/17 19:33 Urine Bacteria Few per hpf (None-Few) 09/29/17 19:33 Hyaline Casts Few per lpf (None-Few) 09/29/17 19:33 Ur Culture Indicated? NO. (NO) 09/29/17 19:33 Urine Test Negative (Negative) 09/29/17 19:33 Urine Opiates Screen Positive ng/mL (Zrkads=963) H 10/01/17 05:25 Ur Barbiturates Screen Negative ng/mL (Cefmhj=915) 10/01/17 05:25 Ur Phencyclidine Scrn Negative ng/mL (Cutoff=25) 10/01/17 05:25 Ur Amphetamines Screen Positive ng/mL (Ldjieh=5533) H 10/01/17 05:25 U Benzodiazepines Scrn Negative ng/mL (Rsjjop=889) 10/01/17 05:25 Urine Cocaine Screen Negative ng/mL (Cutoff= 300) 10/01/17 05:25 U Marijuana (THC) Screen Negative ng/mL (Cutoff = 50) 10/01/17 05:25 Impressions Abdomen/Pelvis CT 09/29/17 16:20 IMPRESSION: Distended gallbladder which shows wall thickening. Gallbladder wall thickening is nonspecific and can be seen with acute and/or chronic inflammation, fluid overload/ edematous states, or right upper quadrant inflammatory or infectious processes to include hepatitis. Periportal edema, also nonspecific and can be also be seen with aggressive hydration, congestive heart failure, or inflammatory processes to include cholangitis, and hepatitis. D/ / Kelly Rodriguez Cha, MD / Kelly Rodriguez Cha, MD Interpreting Provider: Kelly Rodriguez Cha, MD Gallbladder Ultrasound 09/29/17 17:31 IMPRESSION: Findings compatible with acute cholecystitis. There is gallbladder distention, wall thickening, and cholelithiasis with positive sonographic Joseph's sign. Periportal edema, a nonspecific finding. This can be seen with aggressive hydration and hepatitis. D/ / Edison Bridges MD / Edison Bridges MD Interpreting Provider: Edison Bridges MD Anesthesia Exam Vital Signs Temp Pulse Resp BP Pulse Ox 10/01/17 04:42 98.3 F 98 14 94/61 100 09/30/17 18:57 97.9 F 83 14 103/72 100 09/30/17 14:54 97.8 F 61 14 115/78 100 09/30/17 11:12 102/68 09/30/17 10:36 97.7 F 76 15 92/60 98 Intake and Output 09/30/17 09/30/17 10/01/17 15:59 23:59 07:59 Intake Total 600 / 600 2240 / 2240 100 / 100 Output Total 700 / 700 0 / 0 950 / 950 Balance -100 / -100 2240 / 2240 -850 / -850 Intake: IV Fluids 300 / 300 1150 / 1150 100 / 100 0.9 % Sodium Chloride 1,000 ML 850 / 850 @ 125 mls/hr IVC .Q8H [facility] Rx#: [id number] Cipro Premix 400 MG/200 ML 400 200 / 200 200 / 200 mg In 200 ml @ 200 mls/hr IVPB Q12H [facility] Rx#:[id number] Flagyl Premix 500 MG/100 ML 500 100 / 100 100 / 100 100 / 100 mg In 100 ml @ 100 mls/hr IVPB Q8HR [facility] Rx#:[id number] Oral 300 / 300 1090 / 1090 0 / 0 Output: Urine 700 / 700 0 / 0 950 / 950 Other: Meal NPO Lunch Percent of Meal Consumed 100% # Voids 1 1 1 Weight 66.7 kg Blood Glucose* 79 102 Patient Weight 10/01/17 23:59 Weight 66.7 kg - HEENT Pupil (Motor): Pupils equal, EOMI Mallampati: II Teeth: Missing, Poor dentition Oral Opening: Greater than 3 - CATTLE DEALER LOC: Oriented CATTLE DEALER Motor: Normal RUE, Normal LUE, Normal RLE, Normal LLE, Normal Face CATTLE DEALER Sensory: Normal: RUE, LUE, RLE, LLE, Face - Cardiac Rhythm: Regular Murmur: None - Pulmonary Breath Sounds: bilateral Clear Respiratory Effort: Symmetrical Anesthesia Assess/Plan ASA Score: 3 (Seizure d/o, Smoker, Asthma, IVDA/Marijuana/Meth) Modified Napoleon Scale for Level of Consciousness: Cooperative, oriented, and tranquil Anesthetic Plan: General Monitoring Plan: Standard Monitors Recovery Plan: PACU Anes Supervising Prov Stmt: Pt seen/evaluated, R&B Discussed, questions answered and consent obtained. Swapnil Dick MD
[2017-10-01] MEDS ORDERED: *HR* Rocuronium Bromide 50 MG/5 ML VIAL ONE (07:25)
[2017-10-01] MEDS ORDERED: Lidocaine -MPF 2% 2 ML VIAL ONE (07:25)
[2017-10-01] MEDS ORDERED: *HR* FentaNYL (PF) 100 MCG/2 ML VIAL ONE ×2 (07:25→08:20)
[2017-10-01] MEDS ORDERED: Lidocaine -MPF 4% 5 ML AMPUL ONE (07:25)
[2017-10-01] MEDS ORDERED: *HR* Midazolam HCl 5 MG/5 ML VIAL IVP ONE (07:25)
[2017-10-01] MEDS ORDERED: *HR* Succinylcholine 200 MG/10 ML VIAL IVP ONE (07:25)
[2017-10-01] MEDS ORDERED: *HR* Propofol 200 MG/20 ML VIAL IVP ONE (07:25)
[2017-10-01] MEDS ORDERED: Isovue-300 50 ML VIAL IVP ONE (07:34)
[2017-10-01] MEDS ORDERED: Albuterol 2.5 MG/3 ML NEBULIZER ONE (07:36)
[2017-10-01] MEDS ORDERED: Pregabalin 75 MG CAPSULE ONE (07:57)
[2017-10-01] MEDS ORDERED: Acetaminophen IV 1,000 MG/100 ML INFUS..BTL ONE (07:57)
[2017-10-01] MEDS ORDERED: Ketorolac 30 MG/ML VIAL ONE (08:20)
[2017-10-01] MEDS ORDERED: Ondansetron 4 MG/2 ML VIAL ONE (08:21)
[2017-10-01] MEDS ORDERED: Dexamethasone 4 MG/ML VIAL ONE (08:21)
[2017-10-01] MEDS ORDERED: *HR* Magnesium Sulfate 1 GM/2 ML VIAL ONE (08:38)
[2017-10-01] MEDS ORDERED: Famotidine 20 MG/2 ML VIAL ONE (08:38)
--- NOTE | 2017-10-01 09:48 | Operative Note ---
Date of procedure: 10/01/17 Pre-op diagnosis: Acute cholecystitis Post-op diagnosis: same Procedure: Laparoscopic cholecystectomy with cholangiogram Anesthesia: CYNTHIA Surgeon: Kaleb Gusman Was there an finance assistant present: No Estimated blood loss (cc): 25 Specimen: Gallbladder Condition: stable Disposition: floor Procedure in Detail: After informed consent the patient was taken to the operating room. After adequate sedation anesthesia the abdomen was prepped and draped. A proper timeout was performed. Two towel clamps to place the umbilicus. A varies needle was placed at the umbilicus and a pneumo-peritoneum was created. A 12 mm incision was made at the umbilicus and a port was placed under direct visualization. An 5 mm incision was created in the left upper quadrant, followed by one in the right upper quadrant. There were 2 individual 5 mm cannulas then placed in the RUQ. A alligator clamp was then placed on the gallbladder was retracted anteriorly and cephalad. The infundibulum of the gallbladder was identified and the cystic duct was skeletonized. Once the structures were identified the cystic duct was clipped twice proximally and once distally. A cholangiogram was performed and found to have flow into the hepatic radicals and duodenum. Cystic duct was then transected. The gallbladder was then resected off the liver surface. The ICG was again utilized to identify any aberrant ductwork in the liver bed, and there was none noted. Once the gallbladder was fully resected from the liver surface, the liver was gently irrigated and suctioned dry. We ensured hemostasis prior to removing the gallbladder through the umbilical port. Pneumoperitoneum was then evacuated. The 12 mm cannula site was closed with a 0-Vicryl suture in figure- of-eight fashion. The port sites were injected with half percent Marcaine 30 mL. The skin was closed with 4-0 Vicryl suture and Dermabond. All instrument counts and needle counts were correct at the end of the case. The pt was taken to recovery in stable condition.
[2017-10-01] MEDS: *HR* HYDROcodone/Acet 5/325 mg TABLET PO PRN ×3 (10:49→23:54)
[2017-10-01] MEDS: Nicotine 21 MG PATCH.TD24 TD SCH (10:57)
[2017-10-01] MEDS ORDERED: *HR* Promethazine 25 MG/ML VIAL IVP PRN (11:02)
[2017-10-01] MEDS ORDERED: Ondansetron 4 MG/2 ML VIAL IVP PRN (11:02)
[2017-10-01] MEDS ORDERED: Naloxone 0.4 MG/ML INJ IVP PRN (11:02)
[2017-10-01] MEDS: Acetaminophen 325 MG TABLET PO PRN (13:55)
[2017-10-01] MEDS ORDERED: 0.9 % Sodium Chloride 500 ML IVC ONE (14:27)
[2017-10-01] MEDS ORDERED: 0.9 % Sodium Chloride 500 ML ONE (14:31)
--- NOTE | 2017-10-01 14:56 | Internal Med Progress Note ---
Date of Encounter: 10/01/17 Time of Encounter: 14:53 - Assessment and plan (1) Cholecystitis Current Visit: Yes Status: Acute Assessment and plan: CT and US findings suggestive of acute cholecystitis. s/p lap freddie continue pain control change flagyl to po (2) Substance abuse Current Visit: Yes Status: Chronic Assessment and plan: meth, opiates she has an appt next week for follow up (3) UTI (urinary tract infection) Current Visit: Yes Status: Acute Assessment and plan: Urine culture /3 with E.coli sensitive to all except bactrim, ampicillin/ sulbactam Continue cipro , change to 500mg bid po Qualifiers: Hematuria presence: without hematuria Qualified Code(s): N39.0 - Urinary tract infection, site not specified (4) Tobacco dependence Current Visit: Yes Status: Chronic Assessment and plan: - Nicotine patch. - Time Spent With Patient Total time spent is greater than 50% in coordination of care (as documented) at patient's floor/unit and/or counseling patient: - Subjective Interval history: Seen and examined at [facility] Being managed for acute cholecystitis and UTI s/p lap freddie this mrn upon review pain control is adequate, patient is a known polysubstance use - Constitutional Vitals: Temp Pulse Resp BP Pulse Ox 97.8 F 93 16 92/50 98 10/01/17 14:38 10/01/17 14:38 10/01/17 14:38 10/01/17 14:38 10/01/17 14:38 General appearance: Present: A&O X 3, no acute distress, answers questions appropriately - Head Head exam: Present: atraumatic, normocephalic - Eye Eye exam: Present: PERRL, conjuntiva pink, sclera anicteric Pupils: Present: PERRL - Neck Neck exam general surgery: Present: supple, trachea midline. Absent: lymphadenopathy - Respiratory Respiratory exam: Present: CTAB. Absent: accessory muscle use, rales, rhonchi, wheezes - Cardiovascular Cardiovascular exam: Present: RRR, +S1, +S2. Absent: diastolic murmur, gallop, rubs, systolic murmur - GI/Abdominal GI/Abdominal exam: Present: normal bowel sounds, soft, no peritoneal signs. Absent: distended, tenderness Additional comments: scars clean and dry - Extremities Exam Extremities exam: Present: warm, radial pulses palpable and symmetrical. Absent : calf tenderness, cyanotic, pedal edema - Neurological Exam Neurological exam: Present: alert, CN II-XII intact, oriented X3, no focal deficits. Absent: pronater drift, facial droop, speech deficit - Skin Skin exam: Present: dry, intact Internal Medicine: Result - Labs CBC & Chem 7: 10/01/17 06:04 10/01/17 06:04 Labs: Short CBC 10/01/17 Range/Units 06:04 WBC 18.9 H (4.3-11.1) K/mcL Hgb 12.6 (11.5-15.4) g/dL Hct 36.3 (35.3-44.9) % Plt Count 245 (140-400) K/mcL Neutrophils # 13.7 H (1.6-8.9) K/mcL BMP 10/01/17 06:04 Sodium 134 L Potassium 3.8 Chloride 104 Carbon Dioxide 23 BUN 7 Creatinine 0.61 Glucose 107 H Calcium 8.9 - Impressions Impressions Cholangiogram,Operative 10/01/17 00:00 IMPRESSION: Intraprocedural fluoroscopic spot images as above. See separate procedure report for more information. D/ / Singh Ríos MD / Singh Ríos MD Interpreting Provider: Singh Ríos MD Consult Discharge Plan - Plan Referrals: NONE,PCP [Primary Care Provider] -
--- NOTE | 2017-10-01 17:57 | Anesthesia Evaluation Post Op ---
Date of Encounter: 10/01/17 Time of Encounter: 10:00 - Vital Signs Vital Signs: Vital Signs Temp Pulse Resp BP Pulse Ox 10/01/17 14:38 97.8 F 93 16 92/50 98 10/01/17 10:06 98.8 F 96 18 101/71 100 10/01/17 09:56 98.8 F 96 18 102/73 100 10/01/17 09:46 106 18 98/68 100 10/01/17 09:36 106 18 92/55 96 10/01/17 09:26 99.2 F 107 18 81/48 96 10/01/17 07:23 98.7 F 92 14 110/60 99 10/01/17 04:42 98.3 F 98 14 94/61 100 09/30/17 18:57 97.9 F 83 14 103/72 100 Intake and Output 10/01/17 10/01/17 10/01/17 07:59 15:59 23:59 Intake Total 100 / 100 0 / 0 830 / 830 Output Total 950 / 950 25 / 25 850 / 850 Balance -850 / -850 -25 / -25 -20 / -20 Intake: IV Fluids 100 / 100 Flagyl Premix 500 MG/100 ML 500 100 / 100 mg In 100 ml @ 100 mls/hr IVPB Q8HR [facility] Rx#:[id number] Oral 0 / 0 0 / 0 480 / 480 Free Water 350 / 350 Output: Urine 950 / 950 850 / 850 Estimated Blood Loss 25 / 25 Other: Meal npo Dinner Percent of Meal Consumed 100% # Voids 1 Weight 66.7 kg Blood Glucose* 102 125 250 Patient Weight 10/01/17 23:59 Weight 66.7 kg - Lungs Lungs: Clear Ascult./Percussion - Airway Airway: Non-obstructed - Cardiovascular Regular Rate - Mental Status Mental Status: Alert & Oriented, Answers Appropriately - Pain Pain Scale: 2 Pain Scale used: Numeric (1 - 10) - Nausea Vomiting Nausea Vomiting: Not Present - Hydration Hydration: Ice chips, Has not voided - Discharge PostOp Status: Discharge Patient to home Anes Supervising Prov Stmt: Pt seen/evaluated, VSS and pt has met criteria for discharge to home. - MD Mayelin
[2017-10-01] MEDS: *HR* OxyCODONE Immed Rel 5 MG TABLET PO PRN (22:14)
[2017-10-02] MEDS: *HR* OxyCODONE Immed Rel 5 MG TABLET PO PRN ×2 (04:03→11:09)
[2017-10-02] MEDS: Acetaminophen 325 MG TABLET PO PRN (04:05)
[2017-10-02 04:59] LABS: Basophils % 0.2 %; Eosinophils # 0.1 K/mcL (0.0-0.6); Eosinophils % 0.6 %; Hematocrit 36.1 % (35.3-44.9); Hemoglobin 12.2 g/dL (11.5-15.4); Immature Granulocytes % 0.4 % (0-4); Lymphocytes # 3.7 K/mcL (0.6-4.6); Lymphocytes % 20.5 %; Mean Corpuscular HGB Conc 33.8 g/dL (31.6-35.5); Mean Corpuscular Hemoglobin 30.8 pg (28.0-33.3); Mean Corpuscular Volume 91.2 fL (83.0-100.0); Mean Platelet Volume 10.1 fL (9.4-12.4); Monocytes # 1.6 K/mcL (0.0-1.3); Monocytes % 8.8 %; Neutrophils # 12.6 K/mcL (1.6-8.9); Platelet Count 277 K/mcL (140-400); Red Blood Count 3.96 M/mcL (3.82-4.97); Red Cell Distribution Width 13.1 % (11.5-14.5); Segmented Neutrophils % 69.5 %
[2017-10-02 05:00] LABS: BUN/Creatinine Ratio 17 (6-26); Blood Urea Nitrogen 10 mg/dL (6-20); Carbon Dioxide 23 mEq/L (23-29); Chloride 109 mEq/L (98-107); Glucose 112 mg/dL (70-105); Osmolality,Calculated 284 (280-300); Potassium 3.7 mEq/L (3.5-5.1); Sodium 137 mEq/L (136-145); eGFR For African Americans > 60 (> 60); eGFR For Non-African Americans > 60 (> 60)
[2017-10-02 07:17] VITALS: BP 96/66
[2017-10-02] MEDS ORDERED: Nicotine 21 MG PATCH.TD24 TD SCH (09:00)
[2017-10-02] MEDS: *HR* HYDROcodone/Acet 5/325 mg TABLET PO PRN (09:26)
--- NOTE | 2017-10-02 11:29 | General Surgery Progress Note ---
Date of Encounter: 10/02/17 Time of Encounter: 08:55 - Assessment and Plan (1) Cholecystitis Current Visit: Yes Status: Acute The patient underwent successful laparoscopic cholecystectomy but continues to have leukocytosis. We will continue to follow along with you. There does not appear to be a direct problem with the operative sites. Pain management will be challenging Subjective Narrative: The patient is doing quite well after robotic cholecystectomy. Her incisions are healing normally. She states that she has pain with eating. She also has incisional pain. Her past narcotic and opioid use we will make perioperative pain management challenging. Overall her condition is much improved however, her white blood cell count remains elevated at over 18,000. Further workup by primary service. We will continue to follow along. She should make a complete recovery from surgery. Objective Vital Signs - Last 8 Hours Temp Pulse Resp BP Pulse Ox 10/02/17 07:30 98 10/02/17 07:11 97.6 F 91 16 96/66 100 10/02/17 03:32 98.0 F 93 15 97/63 99 Intake and Output 10/01/17 10/02/17 10/02/17 23:59 07:59 15:59 Intake Total 830 / 830 0 / 0 120 / 120 Output Total 850 / 850 Balance -20 / -20 0 / 0 120 / 120 Intake: Oral 480 / 480 0 / 0 120 / 120 Free Water 350 / 350 Output: Urine 850 / 850 Other: Meal Dinner Breakfast Percent of Meal Consumed 100% 85% # Voids 1 2 Weight 66.8 kg Blood Glucose* 250 Patient Weight 10/02/17 23:59 Weight 66.8 kg - General physical appearance well developed, well nourished, moderate pain - Neck Neck exam: no masses, no bruits, trachea midline, no lymphadectomy - Respiratory normal expansion, normal respiratory effort, clear to percussion, clear to auscultation - Cardiovascular Cardiovascular exam: Present: RRR, no murmurs/rubs/gallops - Abdomen Abdomen: Present: bowel sounds present, soft, non tender - Incision Incision: Present: clean and dry - Neurologic normal coordination, normal sensation - Psychiatric oriented to time, oriented to person, oriented to place, speech is normal, memory intact - Labs 10/02/17 04:28 10/02/17 04:28 Diabetes panel 10/02/17 Range/Units 04:28 Sodium 137 (136-145) mEq/L Potassium 3.7 (3.5-5.1) mEq/L Chloride 109 H (98-107) mEq/L Carbon Dioxide 23 (23-29) mEq/L BUN 10 (6-20) mg/dL Creatinine 0.59 L (0.60-1.20) mg/dL Glucose 112 H (70-105) mg/dL Calcium 9.0 (8.6-10.3) mg/dL Calcium panel 10/02/17 Range/Units 04:28 Calcium 9.0 (8.6-10.3) mg/dL Pituitary panel 10/02/17 Range/Units 04:28 Sodium 137 (136-145) mEq/L Potassium 3.7 (3.5-5.1) mEq/L Chloride 109 H (98-107) mEq/L Carbon Dioxide 23 (23-29) mEq/L BUN 10 (6-20) mg/dL Creatinine 0.59 L (0.60-1.20) mg/dL Glucose 112 H (70-105) mg/dL Calcium 9.0 (8.6-10.3) mg/dL Adrenal panel 10/02/17 Range/Units 04:28 Sodium 137 (136-145) mEq/L Potassium 3.7 (3.5-5.1) mEq/L Chloride 109 H (98-107) mEq/L Carbon Dioxide 23 (23-29) mEq/L BUN 10 (6-20) mg/dL Creatinine 0.59 L (0.60-1.20) mg/dL Glucose 112 H (70-105) mg/dL Calcium 9.0 (8.6-10.3) mg/dL Consult Discharge Plan - Plan Referrals: NONE,PCP [Primary Care Provider] -
--- NOTE | 2017-10-02 11:30 | Discharge Summary ---
- NOTES TO OUTPATIENT PROVIDER Notes to Outpatient Provider: Follow up with surgery and PCP Orders not resulted at time of discharge: Pending orders 10/01/17 09:18 Surgical Pathology [PTH] Routine Date of Encounter: 10/02/17 Time of Encounter: 10:45 - Discharge Diagnosis (1) Cholecystitis Priority: Primary Status: Acute (2) Substance abuse Priority: Secondary Status: Chronic (3) UTI (urinary tract infection) Priority: Primary Status: Acute Qualifiers: Urinary tract infection type: acute cystitis Hematuria presence: without hematuria Qualified Code(s): N30.00 - Acute cystitis without hematuria (4) Tobacco dependence Priority: Secondary Status: Chronic Hospital course: Ms. Marie is a 32 year old female with polysubstance abuse, IVDA, hepatitis C, and asthma pt presented to ER with one week h/o RUQ abd pain. She does c/o nausea and denied any vomiting. Her abdominal pain is 10/10 in severity, sharp pain, non radiating and associated with nausea. She had further work up done in the ER, her U/S abd and CT of Abd showed acute cholecystitis. Pt did mention she does take ICE drug 3 days prior to presentation and smoke tobacco and Marijuana on regular basis. Work up also revealed leukocytosis as well as UTI-E.coli She was started on IV cipro and Flagyl and surgery was consulted She is s/p laparoscopic freddie on 10/01 She is seen and evaluated this morning, ambulatory on the floors, no new complains pain is well controlled She still has leukocytosis but is afebrile and not septic Medically stable to be discharged home with appropriate follow up with PCP ,and Surgery Discharged in stable condition and on antibiotics and pain control for few days Discharge discussed with: patient, nurse Time spent discussing smoking cessation with patient: 3 to 10 minutes - Time Spent with Patient Total time spent providing and/or coordinating discharge services: Less than 30 minutes - Discharge Medications Prescriptions: HYDROcodone/Acet 5/325 mg [[place] 5-325 mg] 1 tab PO Q6HR PRN 3 Days #10 tablet PRN Reason: Moderate Pain Ciprofloxacin [Cipro] 500 mg PO BID #10 tablet metroNIDAZOLE [Flagyl] 500 mg PO TID #9 tablet Nicotine Patch [Nicoderm] 21 mg TD DAILY #30 patch.td24 Home Medications: Ciprofloxacin [Cipro] 500 mg PO BID #10 tablet 10/02/17 [Rx] HYDROcodone/Acet 5/325 mg [[place] 5-325 mg] 1 tab PO Q6HR PRN 3 Days #10 tablet 10/02/17 [Rx] Nicotine Patch [Nicoderm] 21 mg TD DAILY #30 patch.td24 10/02/17 [Rx] metroNIDAZOLE [Flagyl] 500 mg PO TID #9 tablet 10/02/17 [Rx] Allergies/Adverse Reactions: 3 Allergy/AdvReac Type Severity Reaction Status Date / Time Cyclobenzaprine AdvReac Seizure Verified 10/01/17 07:02 [From Flexeril] naproxen AdvReac Seizure Verified 09/29/17 04:33 Penicillins [PCN] AdvReac Hives Verified 09/29/17 04:33 Date of admission: 09/29/17 20:47 Primary care physician: PCP NONE Discharging clinician: Rodolfo Estevez Anticipated date of discharge: 10/02/17 - Constitutional Vitals: Temp Pulse Resp BP Pulse Ox 97.6 F 91 16 96/66 98 10/02/17 07:11 10/02/17 07:11 10/02/17 07:11 10/02/17 07:11 10/02/17 07:30 General appearance: Present: A&O X 3, no acute distress, answers questions appropriately - Head Head exam: Present: atraumatic, normocephalic - Eye Eye exam: Present: PERRL, conjuntiva pink, sclera anicteric Pupils: Present: PERRL - Neck Neck exam general surgery: Present: supple, trachea midline. Absent: lymphadenopathy - Respiratory Respiratory exam: Present: CTAB. Absent: accessory muscle use, rales, rhonchi, wheezes - Cardiovascular Cardiovascular exam: Present: RRR, +S1, +S2. Absent: diastolic murmur, gallop, rubs, systolic murmur - GI/Abdominal GI/Abdominal exam: Present: normal bowel sounds, soft, no peritoneal signs. Absent: distended, tenderness Additional comments: scars clean and dry - Extremities Exam Extremities exam: Present: warm, radial pulses palpable and symmetrical. Absent : calf tenderness, cyanotic, pedal edema - Neurological Exam Neurological exam: Present: alert, CN II-XII intact, oriented X3, no focal deficits. Absent: pronater drift, facial droop, speech deficit - Skin Skin exam: Present: dry, intact - Patient Status Disposition: Home, Self-Care Condition: Good Functional capacity at discharge: independent ambulation Overall status at discharge: patient is back to baseline - Discharge Instructions Instructions: Urinary Tract Infection in Women (DC) Follow Up With: NONE,PCP [Primary Care Provider] - - Diet and Activity Activity: resume usual activities as tolerated Diet: regular diet
== END 2017-10-02 11:47 | disposition home or self-care (01) ==
LOC: EMEROO 15:23 → 3ANU 15:23
PROVIDERS: ADMIT Family Medicine; ATTEND Internal Medicine

== ENCOUNTER 2021-09-20 00:10 | Inpatient (IN) ==
[2021-09-20 01:49] LABS: Basophils # 0.1 K/mcL (0.0-0.2); Basophils % 0.4 %; Bilirubin,Urine Negative (Negative); Blood,Urine Negative (Negative); Clarity,Urine Clear (Clear); Color,Urine Yellow (Yellow); Eosinophils # 0.1 K/mcL (0.0-0.6); Eosinophils % 0.5 %; Glucose,Urine (UA) Normal (Normal); Hematocrit 43.5 % (35.3-44.9); Hemoglobin 14.5 g/dL (11.5-15.4); Immature Granulocytes % 0.2 % (0-4); Ketones,Urine Negative (Negative); Leukocyte Esterase,Urine Negative (Negative); Lymphocytes # 3.9 K/mcL (0.6-4.6); Lymphocytes % 28.7 %; Mean Corpuscular HGB Conc 33.3 g/dL (31.6-35.5); Mean Corpuscular Hemoglobin 31.5 pg (28.0-33.3); Mean Corpuscular Volume 94.4 fL (83.0-100.0); Mean Platelet Volume 9.9 fL (9.4-12.4); Monocytes # 0.8 K/mcL (0.0-1.3); Monocytes % 5.6 %; Neutrophils # 8.8 K/mcL (1.6-8.9); Nitrite,Urine Negative (Negative); Platelet Count 290 K/mcL (140-400); Protein,Urine Trace mg/dL (Neg-Trace); Red Blood Count 4.61 M/mcL (3.82-4.97); Red Cell Distribution Width 13.1 % (11.5-14.5); Segmented Neutrophils % 64.6 %; Specific Gravity,Urine 1.025 (1.010-1.025); White Blood Count 13.6 K/mcL (4.3-11.1)
[2021-09-20 02:04] LABS: Amphetamine Screen,Urine Negative ng/mL (Cutoff=1000); Barbiturate Screen,Urine Negative ng/mL (Cutoff=200); Benzodiazepines Screen,Urine Negative ng/mL (Cutoff=200); Cannabinoid Screen,Urine Positive ng/mL (Cutoff = 50); Cocaine Screen,Urine Negative ng/mL (Cutoff= 300); Opiate Screen,Urine Negative ng/mL (Cutoff=300); Phencyclidine Screen,Urine Negative ng/mL (Cutoff=25)
[2021-09-20 02:08] LABS: Acetaminophen < 10 mcg/mL (10-20); Alanine Aminotransferase 30 Units/L (7-52); Albumin 4.9 g/dL (3.5-5.7); Albumin/Globulin Ratio 1.4 (1.1-2.2); Alkaline Phosphatase 62 Units/L (34-104); Aspartate Amino Transferase 34 Units/L (13-39); BUN/Creatinine Ratio 16 (6-26); Bilirubin,Direct 0.1 mg/dL (0.0-0.2); Bilirubin,Indirect 0.5 mg/dL (0.0-1.0); Bilirubin,Total 0.6 mg/dL (0.3-1.0); Blood Urea Nitrogen 12 mg/dL (6-20); Calcium 9.7 mg/dL (8.6-10.3); Carbon Dioxide 26 mEq/L (23-29); Chloride 103 mEq/L (98-107); Ethanol < 10 mg/dL (Less than 10); Globulin 3.4 g/dL (2.4-3.5); Glucose 42 mg/dL (70-105); Osmolality,Calculated 285 (280-300); Potassium 3.2 mEq/L (3.5-5.1); Salicylate < 2.5 mg/dL (15.0-30.0); Sodium 139 mEq/L (136-145); Total Protein 8.3 g/dL (6.4-8.9); eGFR For African Americans > 60 (> 60); eGFR For Non-African Americans > 60 (> 60)
[2021-09-20 05:04] LABS: Influenza A PCR Negative (Negative); Influenza B PCR Negative (Negative); Resp. Syncytial Virus PCR Negative (Negative)
[2021-09-20 05:05] LABS: SARS-CoV-2 by PCR (In House) Negative (Negative)
[2021-09-20] MEDS ORDERED: *HR* LORazepam 2 MG/ML VIAL IM PRN (05:33)
[2021-09-20] MEDS ORDERED: Haloperidol Lactate 5 MG/ML VIAL IM PRN (05:33)
[2021-09-20] MEDS ORDERED: haloperidoL 5 MG TABLET PO PRN (05:33)
[2021-09-20] MEDS ORDERED: *HR* LORazepam 1 MG TABLET PO PRN (05:33)
[2021-09-20] MEDS ORDERED: traZODone 50 MG TABLET PO PRN (05:33)
[2021-09-20] MEDS ORDERED: MOM Conc 10 ML UD.LIQ PO PRN (08:34)
[2021-09-20] MEDS ORDERED: Mag Hydrox/Al Hydrox/Simeth 30 ML UDC PO PRN (08:34)
[2021-09-20] MEDS ORDERED: *HR* Buprenorphine HCl 2 MG SUBLINGUAL TABLET SL SCH (11:30)
[2021-09-20] MEDS: *HR* Buprenorphine HCl 8 MG TAB.SUBL SL SCH (13:17)
[2021-09-20] MEDS: *HR* Buprenorphine HCl 2 MG SUBLINGUAL TABLET SL SCH (13:18)
[2021-09-20] MEDS: lamoTRIgine 25 MG TABLET PO SCH (13:18)
[2021-09-20] MEDS ORDERED: Nicotine 2 MG GUM BC PRN (14:40)
[2021-09-20 16:30] LABS: Thyroid Stimulating Hormone 1.866 mcIU/mL (0.340-5.600)
[2021-09-20] MEDS: Nicotine 2 MG GUM BC SCH ×2 (17:07→18:08)
[2021-09-20] MEDS: hydrOXYzine pamoate 25 MG CAPSULE PO PRN (20:45)
[2021-09-21] MEDS: lamoTRIgine 25 MG TABLET PO SCH (08:39)
[2021-09-21] MEDS: *HR* Buprenorphine HCl 2 MG SUBLINGUAL TABLET SL SCH (08:39)
[2021-09-21] MEDS: *HR* Buprenorphine HCl 8 MG TAB.SUBL SL SCH (08:40)
[2021-09-21] MEDS: hydrOXYzine pamoate 25 MG CAPSULE PO PRN (20:55)
[2021-09-22] MEDS: Acetaminophen 325 MG TABLET PO PRN (08:52)
[2021-09-22] MEDS: *HR* Buprenorphine HCl 8 MG TAB.SUBL SL SCH (09:26)
[2021-09-22] MEDS: *HR* Buprenorphine HCl 2 MG SUBLINGUAL TABLET SL SCH (09:26)
[2021-09-22] MEDS: lamoTRIgine 25 MG TABLET PO SCH (09:28)
[2021-09-22] MEDS: hydrOXYzine pamoate 25 MG CAPSULE PO PRN ×2 (11:40→17:54)
[2021-09-22] MEDS ORDERED: Melatonin 3 MG TABLET PO PRN (21:53)
[2021-09-23] MEDS: Acetaminophen 325 MG TABLET PO PRN (08:30)
[2021-09-23] MEDS: lamoTRIgine 25 MG TABLET PO SCH (08:31)
[2021-09-23] MEDS: *HR* Buprenorphine HCl 8 MG TAB.SUBL SL SCH (08:32)
[2021-09-23] MEDS: *HR* Buprenorphine HCl 2 MG SUBLINGUAL TABLET SL SCH (08:32)
[2021-09-23 09:23] VITALS: BP 107/68; PULSE 67; TEMP 98; O2SAT 97
[2021-09-23] MEDS: hydrOXYzine pamoate 25 MG CAPSULE PO PRN (12:10)
[2021-09-23] MEDS ORDERED: FLU Vac QV 21-22 (6Month+)/PF 0.5 ML SYRINGE IM ONE (12:30)
== END 2021-09-23 17:15 | disposition home or self-care (01) | DRG 753 ==
LOC: EMEROOARM 00:10 → 1ANU 05:19
PROVIDERS: ADMIT Psychiatry & Neurology Psychiatry; ATTEND Psychiatry & Neurology Psychiatry